=== PATIENT | female | born 1985 | race Caucasian/White ===

== ENCOUNTER → 2021-05-30 | Outpatient (CLI) | payer OTHER ==
--- NOTE | 2021-05-30 11:19 | CT ---
CT CHEST FOR PULMONARY EMBOLISM. EXAMINATION TYPE: CT angio chest DATE OF EXAM: 05/30/2021 INDICATION: SOB for [address] DLP: 119.1 mGycm, Automated exposure control for dose reduction was used. CONTRAST: Patient injected with 100 mL of Isovue 370. COMPARISON: None TECHNIQUE: CT of the chest is performed on a spiral scan at 2 mm thick sections. Study is performed with intravenous contrast timed for evaluation for pulmonary embolism. This will limit additional po rtions of the evaluation. 3-D MIP images reconstructed by the technologist are reviewed on the compu ter in the coronal and sagittal planes. FINDINGS: No persistent filling defects are evident to suggest an acute pulmonary embolism. No mediastinal or hilar adenopathy enlarged by CT criteria is evident. The ascending aorta diameter at the level of the main pulmonary artery is 2.7 cm. The main pulmonary artery diameter at the bifur cation is 2.2 cm. There is a 0.3 cm nodule within the anterolateral right apex. Series [address] section through the upper abdomen are unremarkable. IMPRESSIONS: 1. No acute pulmonary embolism. 2. No suspicious abnormality to account for shortness of breath 3. Punctate nodularity right apex follow-up exam in one year can be performed for reevaluation.
== END | disposition home or self-care (01) ==
LOC: RADCTMAIN 09:23
PROVIDERS: ATTEND Internal Medicine Critical Care Medicine
DX: R91.8 Other nonspecific abnormal finding of lung field (principal)
CPT/HCPCS: 71275; Q9967

== ENCOUNTER → 2022-05-15 | Outpatient (CLI) | payer OTHER ==
--- NOTE | 2022-05-15 15:26 | CT ---
EXAMINATION TYPE: CT chest w con DATE OF EXAM: 05/15/2022 COMPARISON: CT dated 05/30/2021 HISTORY: Lung nodule. CT DLP: 150.1 mGycm Automated exposure control for dose reduction was used. TECHNIQUE: CT scan of the chest is performed with IV Contrast, patient injected with 70ml mL of Isovue 300. FINDINGS: LUNGS: Slightly irregular 4 mm nodule in the right lower lobe, stable. Other smaller nodules seen in the right lung apex and left lower lobe, stable. Mosaic attenuation pattern seen in the lower lobes, appreciated previously and could be related to chronic small airway disease or chronic occlusive vasc ular disease, for clinical correlation and further workup. Patent trachea and main bronchi. No pleura l effusion. MEDIASTINUM: There are no greater than 1 cm hilar or mediastinal lymph nodes. No cardiomegaly. Patent major mediastinal vessels. No pericardial effusion is seen. OTHER: Unremarkable upper abdomen. No aggressive bone lesion. IMPRESSION: Stable pulmonary nodules measuring up to 4 mm, unchanged since May 2021 CT scan. Other pulmonary fin dings as detailed above.
== END | disposition home or self-care (01) ==
LOC: RADCTMAIN 10:38
PROVIDERS: ATTEND Internal Medicine Critical Care Medicine
DX: R91.8 Other nonspecific abnormal finding of lung field (principal)
CPT/HCPCS: 71260; Q9967